=== PATIENT | female | born 1970 | race Caucasian/White ===

== ENCOUNTER 2018-05-05 05:31 | Day surgery (SDC) | payer BC, OTHER ==
[~2018-05-05] VITALS: Ht 167.6 cm; Wt 81.0 kg
[2018-05-05] MEDS ORDERED: ACYC-114 PO (06:05)
[2018-05-05] MEDS ORDERED: CETI10TA18 PO (06:05)
[2018-05-05] MEDS ORDERED: MELO15TA6 PO (06:05)
[2018-05-05] MEDS ORDERED: OMEG1CAP23 PO (06:05)
[2018-05-05] MEDS ORDERED: CHOL100012 PO (06:05)
[2018-05-05] MEDS ORDERED: MULT-717 PO (06:05)
[2018-05-05] MEDS ORDERED: ASPI-496 PO (06:05)
[2018-05-05] MEDS ORDERED: LACTATED RINGERS 1,000 ML IV SCH (06:06)
[2018-05-05 06:24] LABS: HCG UR SG 1.025 (1.003-1.030)
[2018-05-05] MEDS ORDERED: BUPIVACAINE/PF 0.5% ONE (06:31)
[2018-05-05] MEDS ORDERED: LIDOCAINE/PF 1%, 30ML ONE (06:32)
[2018-05-05 06:35] VITALS: BP 122/88
[2018-05-05] MEDS ORDERED: MIDAZOLAM 1 MG/ML, 2ML ONE (06:40)
[2018-05-05] MEDS ORDERED: FENTANYL PF 250 MCG/5ML ONE (06:40)
[2018-05-05] MEDS ORDERED: PROPOFOL 10 MG/ML, 20ML ONE (06:41)
[2018-05-05] MEDS ORDERED: NEOSPORIN OINT, 15GM ONE (06:42)
[2018-05-05] MEDS ORDERED: ROCURONIUM 10MG/ML,5ML ONE (06:43)
[2018-05-05] MEDS ORDERED: MEDR150D3 IM (06:46)
[2018-05-05] MEDS ORDERED: TROS20TA2 PO (06:46)
[2018-05-05] MEDS ORDERED: OFLO5DRO7 TP (06:46)
[2018-05-05] MEDS ORDERED: METOPROLOL 1 MG/ML, 5ML ONE (06:55)
[2018-05-05] MEDS ORDERED: ONDANSETRON 2MG/ML, 2ML ONE (06:55)
[2018-05-05] MEDS ORDERED: CEFAZOLIN 1,000 MG ONE ×2 (07:03)
[2018-05-05] MEDS ORDERED: KETOROLAC 30 MG/1 ML ONE (07:05)
[2018-05-05] MEDS ORDERED: DEXAMETHASONE 4 MG/ML, 1ML ONE (07:05)
[2018-05-05] MEDS ORDERED: MEPERIDINE/PF 50 MG/ML ONE (07:56)
[2018-05-05] MEDS ORDERED: ACETAMINOPHEN 650 MG/20.3 ML UDC ONE (07:56)
[2018-05-05] MEDS ORDERED: OXYcodone 5 MG/5 ML ORAL.SOL UDC ONE (07:57)
[2018-05-05] MEDS ORDERED: METOPROLOL 1 MG/ML, 5ML IV PRN (08:00)
[2018-05-05] MEDS ORDERED: OXYcodone 5 MG/5 ML ORAL.SOL UDC PO PRN (08:00)
[2018-05-05] MEDS ORDERED: FENTANYL PF 100 MCG/2ML IV PRN (08:00)
[2018-05-05] MEDS ORDERED: HYDROmorphone 1 MG/ML, 1ML IV PRN (08:00)
[2018-05-05] MEDS ORDERED: MEPERIDINE/PF 25MG/0.5ML IVPush PRN (08:00)
[2018-05-05] MEDS ORDERED: hydrALAzine 20 MG/ML, 1ML IV PRN (08:00)
[2018-05-05] MEDS ORDERED: PROMETHAZINE 12.5 MG SUPP PR PRN (08:00)
[2018-05-05] MEDS ORDERED: ACETAMINOPHEN 325 MG TABLET PO PRN (08:00)
[2018-05-05] MEDS ORDERED: ONDANSETRON 2MG/ML, 2ML IV PRN (08:00)
[2018-05-05] MEDS ORDERED: LABETALOL 5MG/ML, 20ML IV PRN (08:00)
== END 2018-05-05 10:10 | disposition home or self-care (01) ==
LOC: OUT 05:31
PROVIDERS: ATTEND Orthopaedic Surgery Foot and Ankle Surgery
DX: G57.61 Lesion of plantar nerve, right lower limb (principal); G57.62 Lesion of plantar nerve, left lower limb; I49.9 Cardiac arrhythmia, unspecified; Z86.14 Personal history of Methicillin resistant Staphylococcus aureus infection; Z88.0 Allergy status to penicillin; Z79.899 Other long term (current) drug therapy; Z85.038 Personal history of other malignant neoplasm of large intestine
CPT/HCPCS: 28080; 81025; 93005; J0690; J1100; J1885; J2175; J2250; J2704; J3010; J3490; J7120; J2405